=== PATIENT | male | born 2000 | race Two or more races ===

== ENCOUNTER 2019-01-13 11:24 | Emergency (ER) | payer OTHER ==
[~2019-01-13] VITALS: Ht 172.7 cm; Wt 86.2 kg
--- NOTE | 2019-01-13 11:59 | NUR ---
BIB PARENTS, HEARING "NEGATIVE" VOICES, HALLUCINATIONS, PARANOID. -SI/HI. PT AAOX4, VSS. DENIES ANY OTHER DISCOMFORT @ THIS TIME. PT STS ALL OF THIS SYMPTOMS STARTED AFTER TAKING NEW MEDICATION (LATUDA) 4 DAYS AGO. PT CALM & COOPERATIVE, NAD NOTED @ THIS TIME. URINE COLLECTED & SENT TO LAB. DR. REGAN @ BS FOR EVAL. WILL CONT TO MONITOR.
--- NOTE | 2019-01-13 12:37 | NUR ---
Patient discharged to home in stable condition. Written and verbal after care instructions given. Patient verbalizes understanding of instruction.
[2019-01-13 12:41] VITALS: BP 143/83
== END 2019-01-13 12:42 | disposition home or self-care (01) ==
LOC: ER 11:28
DX: J02.9 Acute pharyngitis, unspecified (principal); F32.9 Major depressive disorder, single episode, unspecified; F41.9 Anxiety disorder, unspecified
CPT/HCPCS: 99283; A4606